=== PATIENT | female | born 1995 | race Caucasian/White ===

== ENCOUNTER 2025-03-03 15:14 | Emergency (ER) | payer OTHER ==
[~2025-03-03] VITALS: Ht 162.6 cm; Wt 73.0 kg
[2025-03-03] MEDS ORDERED: ALBU18HF2 IH (16:22)
[2025-03-03] MEDS ORDERED: P50 MT (16:22)
[2025-03-03] MEDS ORDERED: CETI-341 PO (16:22)
[2025-03-03] MEDS: IPRATROPIUM/ALBUTEROL 0.5-3(2.5)MG/3ML NEB HHN ONE (16:44)
[2025-03-03] MEDS: DEXAMETHASONE 10 MG/ML VIAL IM ONE (16:45)
[2025-03-03 16:46] VITALS: PULSE 108; RESP 21; O2SAT 98
[2025-03-03 17:14] VITALS: BP 130/83; PULSE 86; RESP 18; TEMP 36.8; O2SAT 99
== END 2025-03-03 17:15 | disposition home or self-care (01) ==
LOC: ER 15:14
DX: J45.901 Unspecified asthma with (acute) exacerbation (principal); F41.9 Anxiety disorder, unspecified; Z79.899 Other long term (current) drug therapy
CPT/HCPCS: 81025; 94640; 96372; 99283; J1100; Z7610 ×3; 94070; 94664